=== PATIENT | male | born 1985 | race Caucasian/White ===

== ENCOUNTER 2020-03-16 20:11 | Emergency (ER) | payer OTHER ==
[~2020-03-16] VITALS: Ht 165.1 cm; Wt 74.8 kg
[~2020-03-16 20:11] MED LIST: EC-NAPROSYN500 MG PO; GEODON20 MG
[2020-03-16] MEDS ORDERED: ITCH RELIEF15 G1 TOP (21:50)
== END 2020-03-16 22:16 | disposition home or self-care (01) ==
LOC: ER 20:11
DX: B35.3 Tinea pedis (principal)

== ENCOUNTER 2023-07-31 12:11 | Emergency (ER) | payer OTHER ==
[~2023-07-31] VITALS: Ht 162.6 cm; Wt 77.1 kg
[~2023-07-31 12:11] MED LIST changes: +CEPHALEXIN500 MG PO; +CLONAZEPAM2 M1; +CORTISPORIN EAR10 M1 OPHT; +GEODON80 MG; +ITCH RELIEF15 G1 TOP; +KETO10TA2 PO; +PRISTIQ25 MG
[2023-07-31] MEDS ORDERED: LATUDA60 MG PO (12:54)
[2023-07-31] MEDS ORDERED: TERBINAFINE HC250 MG PO (13:27)
[2023-07-31] MEDS ORDERED: CLOTRIMAZOLE-BE15 G1 TOP (13:27)
== END 2023-07-31 14:08 | disposition home or self-care (01) ==
LOC: ER 12:11
DX: B49 Unspecified mycosis (principal); R21 Rash and other nonspecific skin eruption

== ENCOUNTER 2024-01-24 19:14 | Emergency (ER) | payer OTHER ==
[~2024-01-24] VITALS: Ht 165.1 cm; Wt 81.6 kg
[~2024-01-24 19:14] MED LIST changes: +CLOTRIMAZOLE-BE15 G1 TOP; +LATUDA60 MG PO; +TERBINAFINE HC250 MG PO
== END 2024-01-24 23:30 | disposition home or self-care (01) ==
LOC: ER 19:15
DX: S60.312S Abrasion of left thumb, sequela (principal)